=== PATIENT | female | born 1995 | race Caucasian/White ===

== ENCOUNTER 2018-10-01 11:43 | Inpatient (IN) | payer BC ==
[2018-10-01] MEDS ORDERED: Sodium Chloride 0.9% 10 ML Syringe FLUSH PRN (12:09)
[2018-10-01] MEDS ORDERED: Nalbuphine 20 MG/ML 1 ML Syringe IVPUSH PRN (12:09)
[2018-10-01] MEDS ORDERED: Ampicillin 2 GM in Sodium Chloride 0.9% 100 ML IV ONE (12:09)
[2018-10-01] MEDS ORDERED: Ampicillin 2 GM AdvVial IV ONE (12:13)
[2018-10-01] MEDS ORDERED: Sodium Chloride 0.9% 100 ML ONE (12:14)
[2018-10-01] MEDS ORDERED: Lactated Ringers 1,000 ML IV SCH (12:15)
[2018-10-01] MEDS ORDERED: Oxytocin/Lactated Ringers 10 UNIT/1,000 ML BAG IV SCH (12:15)
[2018-10-01] MEDS ORDERED: Lidocaine 1% 50 ML MDV ONE (14:36)
--- NOTE | 2018-10-01 15:01 | PCM.LDHP ---
L&D History of Present Illness - General Date of Service: 10/01/18 Admit Problem/Dx: Patient Status Order with Admit Dx/Problem 10/01/18 12:10 Patient Status [ADT] Routine Admission Diagnosis/Problem Admission Diagnosis/Problem Source of Information: Patient History Limitations: Reports: No Limitations - History of Present Illness Introduction:: Her old 001 JM 10/05/18 at 39 weeks and 3 days estimated gestational age group B strep positive patient presented to labor and delivery with frequent contractions cervix 5-6 cm dilated at 1400 hrs. on Wednesday10/01/18 patient admitted for labor and delivery. Blood type O-positive antibody screen negative on 03/10/18 hemoglobin 13.0/ hematocrit 39.1 platelets 235,000, rubella equivocal serology nonreactive urine culture mixed ihsan hepatitis B surface antigen and HIV negative GC and chlamydia probe negative. On 07/08/18 hemoglobin/hematocrit 12.8/39.2 platelets 198,000, 1 hour OB glucose screen 101 RPR nonreactive. On 02/10/18 hemoglobin/hematocrit 13.6 and 42.1 platelets 270,000. One 09/08/18 group B strep positive. Ultrasound obtained on 03/10/2010 weeks 1 day and cystoscopy with JM of . Heart tones and good activity noted. heart tones possibly 174. On 05/22/18 ultrasound obtained on 05/18/1819 weeks 5 days vaca viable intrauterine 51% growth interval anterior placental location cervix 4.6 cm heart tones 140. Small echogenic focus left ventricle. 06/17/18 ultrasound 24 weeks 3 days vaca viable intrauterine anterior placenta and normal RIGOBERTO and normal anatomy with the exception of echogenic focus left ventricle of the heart. Growth at 57 percentile heart rate 1 44 bpm cervix 3.8 cm. Location, : Reports: Abdomen, Lower back Quality: Reports: Ache, Pressure Severity: Moderate Pain Score: 6 Improves with: Reports: None Worsens with: Reports: None Associated Symptoms: Reports: N - Related Data Allergies/Adverse Reactions: Allergies Allergy/AdvReac Type Severity Reaction Status Date / Time No Known Allergies Allergy Verified 06/23/15 23:45 Home Medications: Home Meds Vit 90/Iron Fum/Folic [ Formula] 1 tab PO DAILY 06/23/15 [ History] Acetaminophen [Tylenol] 650 mg PO Q4H PRN #0 tablet 01/25/16 [Rx] Benzocaine/Menthol [Dermoplast Pain Relief Orestes] 1 spray TOP ASDIRECTED PRN #0 canister 01/25/16 [Rx] Docusate Sodium [Colace] 100 mg PO BID PRN #0 cap 01/25/16 [Rx] Ibuprofen [IJD: Ibuprofen] 200 - 600 mg PO Q6H PRN #0 tablet 01/25/16 [Rx] Bindu Camposel [Tucks] 1 pad TOP ASDIRECTED PRN #0 pad 01/25/16 [Rx] Past Medical History [employer] History: Reports: - Past Surgical History HEENT Surgical History: Reports: Other (See Below) Social & Family History - Family History Family Medical History: Noncontributory - Tobacco Use Smoking Status *Q: Never Smoker Second Hand Smoke Exposure: No - Caffeine Use Caffeine Use: Reports: None - Recreational Drug Use Recreational Drug Use: No H&P Review of Systems - Review of Systems: Review Of Systems: See Below General: Reports: No Symptoms HEENT: Reports: No Symptoms Pulmonary: Reports: No Symptoms Cardiovascular: Reports: No Symptoms Gastrointestinal: Reports: No Symptoms Genitourinary: Reports: No Symptoms Musculoskeletal: Reports: No Symptoms Skin: Reports: No Symptoms Psychiatric: Reports: No Symptoms Neurological: Reports: No Symptoms Hematologic/Lymphatic: Reports: No Symptoms Immunologic: Reports: No Symptoms L&D Exam - Exam Exam: See Below - Vital Signs Vital Signs: Last Vital Signs Temp 98.3 F 10/01/18 12:10 Pulse 76 10/01/18 12:10 Resp 14 10/01/18 12:10 BP 126/72 10/01/18 12:10 Pulse Ox 100 10/01/18 11:59 Weight: 145 lb - OB Specific Fundal Height In cm: 39 Contraction Duration (sec): 60 Contraction Frequency (min): 2-3 Contraction Intensity: Moderate Movement: Active Heart Tones: Present Heart Tones per Min: 140 Heart Rate (FHR) Variability: Moderate (6-25 bmp) Presentation: Vertex - Damian Score Damian Score Cervix Position: Midposition Damian Score Consistency: Soft Damian Score Effacement: 51-70% Damian Score Dilation: > 5 cm Damian Score 's Station: -2 Damian Score Total: 9 - Exam General: Alert, Oriented HEENT: Conjunctiva Clear, Mucosa Moist & [place], PERRLA Neck: Supple, Trachea Midline Lungs: Clear to Auscultation, Normal Respiratory Effort Cardiovascular: Regular Rate, Regular Rhythm GI/Abdominal Exam: Normal Bowel Sounds, Soft, Non-Tender Genitourinary: Normal external exam Extremities: Normal Inspection, Normal Range of Motion, Non-Tender, No Pedal Edema, Normal Capillary Refill Skin: Warm, Dry, Intact Neurological: Reflexes Equal Bilateral Psychiatric: Alert, Normal Affect, Normal Mood - Patient Data Lab Results Last 24 hrs: Laboratory Results - last 24 hr 10/01/18 10/01/18 Range/Units 12:30 12:30 WBC 11.66 H (3.98-10.04) K/mm3 RBC 4.39 (3.98-5.22) M/mm3 Hgb 13.5 (11.2-15.7) gm/L Hct 41.9 (34.1-44.9) % MCV 95.4 H (79.4-94.8) fl MCH 30.8 (25.6-32.2) pg MCHC 32.2 (32.2-35.5) g/dl RDW Std Deviation 47.9 H (36.4-46.3) fL Plt Count 191 (182-369) K/mm3 MPV 10.6 (9.4-12.3) fl Neut % (Auto) 75.5 H (34.0-71.1) % Lymph % (Auto) 14.4 L (19.3-51.7) % [place] % (Auto) 8.5 (4.7-12.5) % Eos % (Auto) 0.3 L (0.7-5.8) Baso % (Auto) 0.2 (0.1-1.2) % Neut # (Auto) 8.80 H (1.56-6.13) K/mm3 Lymph # (Auto) 1.68 (1.18-3.74) K/mm3 [place] # (Auto) 0.99 H (0.24-0.36) K/mm3 Eos # (Auto) 0.04 (0.04-0.36) K/mm3 Baso # (Auto) 0.02 (0.01-0.08) K/mm3 Manual Slide Review Abnormal smear Blood Type O POSITIVE Gel Antibody Screen Negative Result Diagrams: 10/01/18 12:30 - Problem List (1) Carrier or suspected carrier of group B Streptococcus SNOMED Code(s): 163422016 ICD Code: Z22.330 - CARRIER OF GROUP B STREPTOCOCCUS Status: Acute Current Visit: Yes (2) Echogenic focus of heart, , affecting care of mother, antepartum SNOMED Code(s): 201980026, 975516082, 964726688 ICD Code: O35.8XX0 - MATERNAL CARE FOR OTH ABNORMALITY AND DAMAGE, UNSP Status: Acute Current Visit: Yes Qualifiers: Fetus number: single or unspecified fetus Qualified Code(s): O35.8XX0 - Maternal care for other (suspected) abnormality and damage, not applicable or unspecified (3) 39 weeks gestation of SNOMED Code(s): 73510480 ICD Code: Z3A.39 - 39 WEEKS GESTATION OF Status: Acute Current Visit: No Problem List Initiated/Reviewed/Updated: No Orders Last 24hrs: Active Orders 24 hr Category Date Time Status Patient Status [ADT] Routine ADT 10/01/18 12:10 Active Activity as Tolerated [RC] PFP Care 10/01/18 12:10 Active Communication Order [RC] ASDIRECTED Care 10/01/18 12:10 Active Notify Provider [RC] PFP Care 10/01/18 12:10 Active Notify Provider [RC] PRN Care 10/01/18 12:10 Active Peripheral IV Care [RC] . DIRECTED Care 10/01/18 12:10 Active Vital Signs [RC] 03,09,15,21 Care 10/01/18 12:10 Active Regular Diet [DIET] Diet 10/01/18 Lunch Active Ampicillin 1 gm Med 10/01/18 16:00 Active Sodium Chloride 0.9% [Normal Saline] 100 ml IV Q4H Lactated Ringers [Ringers, Lactated] 1,000 ml Med 10/01/18 12:15 Active IV ASDIRECTED Nalbuphine [Nubain] Med 10/01/18 12:09 Active 10 mg IVPUSH Q2H PRN Oxytocin/Lactated Ringers [Pitocin in LR 10 Units/1,000 Med 10/01/18 12:15 Active ML] 10 unit in 1,000 ml IV .CONTINUOUS Sodium Chloride 0.9% [Saline Flush] Med 10/01/18 12:09 Active 10 ml FLUSH ASDIRECTED PRN Electronic Heart Tones Ext w TOCO [WOMSER] Oth 10/01/18 12:10 Ordered Routine Electronic Heart Tones Internal [WOMSER] Per Unit Oth 10/01/18 12:10 Ordered Routine Peripheral IV Insertion Adult [OM.PC] Routine Oth 10/01/18 12:10 Ordered Resuscitation Status Routine Resus Stat 10/01/18 12:09 Ordered Medication Orders Ampicillin Sodium 1 gm/ Sodium (Chloride) 100 mls @ 200 mls/hr IV Q4H NEISHA Lactated Ringer's (Ringers, Lactated) 1,000 mls @ 100 mls/hr IV ASDIRECTED NEISHA Last Admin: 10/01/18 12:18 Dose: 100 mls/hr Oxytocin/Lactated Ringer's (Pitocin In Lr 10 Units/1,000 Ml) 10 unit in 1,000 mls @ 500 mls/hr IV .CONTINUOUS NEISHA Nalbuphine HCl (Nubain) 10 mg IVPUSH Q2H PRN PRN Reason: pain Sodium Chloride (Saline Flush) 10 ml FLUSH ASDIRECTED PRN PRN Reason: Keep Vein Open Assessment/Plan Comment:: Plan labor and delivery.
[2018-10-01] MEDS ORDERED: Ampicillin 1 GM in Sodium Chloride 0.9% 100 ML IV SCH (16:00)
[2018-10-01] MEDS ORDERED: Misoprostol 200 MCG Tab ONE (17:42)
--- NOTE | 2018-10-01 17:48 | PCM.DEL ---
L & D Note - General Info Date of Service: 10/01/18 Mother's Due Date: 10/05/18 - Delivery Note Labor: Spontaneous Delivery Outcome: Livebirth (male GERTRUDIS Wednesday10/01/18 APGARs 8/9) Infant Delivery Method: Spontaneous Vaginal Delivery-Single Delivery Mode: Spontaneous Presentation: Left Occiput Anterior (GERTRUDIS) Nuchal Cord: None Prep: Povidone-Iodine (Betadine Anesthesia Type: None Episiotomy Type: None Laceration: None Placenta: Intact, Spontaneous (173110/01/18 velamentous insertion of cord) Cord: 3 Vessels Estimated Blood Loss: 250 (Cytotec 200 mcg x2 buccal) Resuscitation Needed: No [place]: Suctioned, Bulb Syringe, Stimulated, Warmed, [place] Used, Warmer Used Provider: Tomy Arnold Score 1 min: 8 Score 5 min: 9 - General Info Date of Service: 10/01/18 Functional Status: Reports: Pain Controlled - Review of Systems General: Reports: No Symptoms HEENT: Reports: No Symptoms Pulmonary: Reports: No Symptoms Cardiovascular: Reports: No Symptoms Gastrointestinal: Reports: No Symptoms Genitourinary: Reports: No Symptoms Musculoskeletal: Reports: No Symptoms Skin: Reports: No Symptoms Neurological: Reports: No Symptoms Psychiatric: Reports: No Symptoms - Patient Data Vitals - Most Recent: Last Vital Signs Temp 98.3 F 10/01/18 12:10 Pulse 76 10/01/18 12:10 Resp 14 10/01/18 12:10 BP 126/72 10/01/18 12:10 Pulse Ox 100 10/01/18 11:59 Weight - Most Recent: 145 lb Lab Results Last 24 Hours: Laboratory Results - last 24 hr 10/01/18 10/01/18 Range/Units 12:30 12:30 WBC 11.66 H (3.98-10.04) K/mm3 RBC 4.39 (3.98-5.22) M/mm3 Hgb 13.5 (11.2-15.7) gm/L Hct 41.9 (34.1-44.9) % MCV 95.4 H (79.4-94.8) fl MCH 30.8 (25.6-32.2) pg MCHC 32.2 (32.2-35.5) g/dl RDW Std Deviation 47.9 H (36.4-46.3) fL Plt Count 191 (182-369) K/mm3 MPV 10.6 (9.4-12.3) fl Neut % (Auto) 75.5 H (34.0-71.1) % Lymph % (Auto) 14.4 L (19.3-51.7) % [place] % (Auto) 8.5 (4.7-12.5) % Eos % (Auto) 0.3 L (0.7-5.8) Baso % (Auto) 0.2 (0.1-1.2) % Neut # (Auto) 8.80 H (1.56-6.13) K/mm3 Lymph # (Auto) 1.68 (1.18-3.74) K/mm3 [place] # (Auto) 0.99 H (0.24-0.36) K/mm3 Eos # (Auto) 0.04 (0.04-0.36) K/mm3 Baso # (Auto) 0.02 (0.01-0.08) K/mm3 Manual Slide Review Abnormal smear Blood Type O POSITIVE Gel Antibody Screen Negative Med Orders - Current: Current Medications Ampicillin Sodium 1 gm/ Sodium (Chloride) 100 mls @ 200 mls/hr IV Q4H NEISHA Last Admin: 10/01/18 15:37 Dose: 200 mls/hr Lactated Ringer's (Ringers, Lactated) 1,000 mls @ 100 mls/hr IV ASDIRECTED NEISHA Last Admin: 10/01/18 12:18 Dose: 100 mls/hr Oxytocin/Lactated Ringer's (Pitocin In Lr 10 Units/1,000 Ml) 10 unit in 1,000 mls @ 500 mls/hr IV .CONTINUOUS NEISHA Nalbuphine HCl (Nubain) 10 mg IVPUSH Q2H PRN PRN Reason: pain Sodium Chloride (Saline Flush) 10 ml FLUSH ASDIRECTED PRN PRN Reason: Keep Vein Open Discontinued Medications Ampicillin Sodium (Ampicillin) Confirm Administered Dose 2 gm IV .STK-MED ONE Stop: 10/01/18 12:14 Last Admin: 10/01/18 14:17 Dose: Not Given Ampicillin Sodium 2 gm/ Sodium (Chloride) 100 mls @ 200 mls/hr IV ONETIME ONE Stop: 10/01/18 12:38 Last Admin: 10/01/18 12:18 Dose: 200 mls/hr Sodium Chloride (Normal Saline) Confirm Administered Dose 100 mls @ as directed .ROUTE .[employer] ONE Stop: 10/01/18 12:15 Last Admin: 10/01/18 14:17 Dose: Not Given Lidocaine HCl (Xylocaine 1%) Confirm Administered Dose 50 ml .ROUTE .[employer] ONE Stop: 10/01/18 14:37 - Exam General: Alert, Oriented HEENT: Pupils Equal, Mucous Membr. Moist/[place] Neck: Supple (Female) Exam: Normal External Exam Extremities: Normal Inspection, Normal Range of Motion, Non-Tender, No Pedal Edema, Normal Capillary Refill - Problem List & Annotations (1) Carrier or suspected carrier of group B Streptococcus SNOMED Code(s): 690495116 Code(s): Z22.330 - CARRIER OF GROUP B STREPTOCOCCUS Status: Acute Current Visit: Yes (2) Echogenic focus of heart, , affecting care of mother, antepartum SNOMED Code(s): 930844533, 285881710, 441146833 Code(s): O35.8XX0 - MATERNAL CARE FOR OTH ABNORMALITY AND DAMAGE, UNSP Status: Acute Current Visit: Yes Qualifiers: Fetus number: single or unspecified fetus Qualified Code(s): O35.8XX0 - Maternal care for other (suspected) abnormality and damage, not applicable or unspecified (3) 39 weeks gestation of SNOMED Code(s): 32240520 Code(s): Z3A.39 - 39 WEEKS GESTATION OF Status: Acute Current Visit: No (4) Velamentous insertion of umbilical cord SNOMED Code(s): 05992073 Code(s): O43.129 - VELAMENTOUS INSERTION OF UMBILICAL CORD, UNSP TRIMESTER Status: Acute Current Visit: Yes - Problem List Review Problem List Initiated/Reviewed/Updated: No - My Orders Last 24 Hours: My Active Orders 10/01/18 12:09 Nalbuphine [Nubain] 10 mg IVPUSH Q2H PRN Sodium Chloride 0.9% [Saline Flush] 10 ml FLUSH ASDIRECTED PRN Resuscitation Status Routine 10/01/18 12:10 Patient Status [ADT] Routine Activity as Tolerated [RC] PFP Communication Order [RC] ASDIRECTED Notify Provider [RC] PFP Notify Provider [RC] PRN Peripheral IV Care [RC] . DIRECTED Vital Signs [RC] 03,09,15,21 Electronic Heart Tones Ext w TOCO [WOMSER] Routine Electronic Heart Tones Internal [WOMSER] Per Unit Routine Peripheral IV Insertion Adult [OM.PC] Routine 10/01/18 12:15 Lactated Ringers [Ringers, Lactated] 1,000 ml IV ASDIRECTED Oxytocin/Lactated Ringers [Pitocin in LR 10 Units/1,000 ML] 10 unit in 1,000 ml IV .CONTINUOUS 10/01/18 16:00 Ampicillin 1 gm Sodium Chloride 0.9% [Normal Saline] 100 ml IV Q4H 10/01/18 Lunch Regular Diet [DIET] - Plan Plan:: Plan labor and delivery.
[2018-10-01] MEDS ORDERED: Ibuprofen 600 MG Tab PO PRN (18:21)
[2018-10-01] MEDS ORDERED: Docusate Sodium 100 MG Cap PO PRN (18:21)
[2018-10-01] MEDS ORDERED: Simethicone 80 MG Tab.Chew PO PRN (18:21)
[2018-10-01] MEDS ORDERED: Lanolin 100% Cream 7 GM Tube TOP PRN (18:21)
[2018-10-01] MEDS ORDERED: Witch Hazel Medicated Pads 100/Jar TOP PRN (18:21)
[2018-10-01] MEDS ORDERED: Acetaminophen 325 MG Tab PO PRN (18:21)
[2018-10-01] MEDS ORDERED: Misoprostol 200 MCG Tab PO ONE (18:30)
--- NOTE | 2018-10-02 10:15 | PCM.DCSUM1 ---
Discharge Summary - Hospital Course Free Text/Narrative:: [facility] LIVE L/D Delivery Note Patient Name: ABRAHAN CHAMBERS Date of : 89 Patient Status: Inpatient Attending Provider: Tomy Arnold Date: 10/01/18 17:44 Initialization Date: 10/01/18 17:44 L & D Note - General Info Date of Service: 10/01/18 Mother's Due Date: 10/05/18 - Delivery Note Labor: Spontaneous Delivery Outcome: Livebirth (male GERTRUDIS Wednesday10/01/18 APGARs 8/9) Delivery Method: Spontaneous Vaginal Delivery-Single Infant Delivery Mode: Spontaneous Presentation: Left Occiput Anterior (GERTRUDIS) Nuchal Cord: None Prep: Povidone-Iodine (Betadine Anesthesia Type: None Episiotomy Type: None Laceration: None Placenta: Intact, Spontaneous (173110/01/18 velamentous insertion of cord) Cord: 3 Vessels Estimated Blood Loss: 250 (Cytotec 200 mcg x2 buccal) Resuscitation Needed: No : Suctioned, Bulb Syringe, Stimulated, Warmed, [place] Used, Warmer Used Provider: Tomy Arnold Score 1 min: 8 Score 5 min: 9 - General Info Date of Service: 10/01/18 Functional Status: Reports: Pain Controlled - Review of Systems General: Reports: No Symptoms HEENT: Reports: No Symptoms Pulmonary: Reports: No Symptoms Cardiovascular: Reports: No Symptoms Gastrointestinal: Reports: No Symptoms Genitourinary: Reports: No Symptoms Musculoskeletal: Reports: No Symptoms Skin: Reports: No Symptoms Neurological: Reports: No Symptoms Psychiatric: Reports: No Symptoms - Patient Data Vitals - Most Recent: Last Vital Signs Temp 98.3 F 10/01/18 12:10 Pulse 76 10/01/18 12:10 Resp 14 10/01/18 12:10 BP 126/72 10/01/18 12:10 Pulse Ox 100 10/01/18 11:59 Weight - Most Recent: 145 lb Lab Results Last 24 Hours: Laboratory Results - last 24 hr 10/01/18 10/01/18 Range/Units 12:30 12:30 WBC 11.66 H (3.98-10.04) K/mm3 RBC 4.39 (3.98-5.22) M/mm3 Hgb 13.5 (11.2-15.7) gm/L Hct 41.9 (34.1-44.9) % MCV 95.4 H (79.4-94.8) fl MCH 30.8 (25.6-32.2) pg MCHC 32.2 (32.2-35.5) g/dl RDW Std Deviation 47.9 H (36.4-46.3) fL Plt Count 191 (182-369) K/mm3 MPV 10.6 (9.4-12.3) fl Neut % (Auto) 75.5 H (34.0-71.1) % Lymph % (Auto) 14.4 L (19.3-51.7) % [place] % (Auto) 8.5 (4.7-12.5) % Eos % (Auto) 0.3 L (0.7-5.8) Baso % (Auto) 0.2 (0.1-1.2) % Neut # (Auto) 8.80 H (1.56-6.13) K/mm3 Lymph # (Auto) 1.68 (1.18-3.74) K/mm3 [place] # (Auto) 0.99 H (0.24-0.36) K/mm3 Eos # (Auto) 0.04 (0.04-0.36) K/mm3 Baso # (Auto) 0.02 (0.01-0.08) K/mm3 Manual Slide Review Abnormal smear Blood Type O POSITIVE Gel Antibody Screen Negative Med Orders - Current: Current Medications Ampicillin Sodium 1 gm/ Sodium (Chloride) 100 mls @ 200 mls/hr IV Q4H [facility] Last Admin: 10/01/18 15:37 Dose: 200 mls/hr Lactated Ringer's (Ringers, Lactated) 1,000 mls @ 100 mls/hr IV ASDIRECTED [facility] Last Admin: 10/01/18 12:18 Dose: 100 mls/hr Oxytocin/Lactated Ringer's (Pitocin In Lr 10 Units/1,000 Ml) 10 unit in 1,000 mls @ 500 mls/hr IV .CONTINUOUS NEISHA Nalbuphine HCl (Nubain) 10 mg IVPUSH Q2H PRN PRN Reason: pain Sodium Chloride (Saline Flush) 10 ml FLUSH ASDIRECTED PRN PRN Reason: Keep Vein Open Discontinued Medications Ampicillin Sodium (Ampicillin) Confirm Administered Dose 2 gm IV .STK-MED ONE Stop: 10/01/18 12:14 Last Admin: 10/01/18 14:17 Dose: Not Given Ampicillin Sodium 2 gm/ Sodium (Chloride) 100 mls @ 200 mls/hr IV ONETIME ONE Stop: 10/01/18 12:38 Last Admin: 10/01/18 12:18 Dose: 200 mls/hr Sodium Chloride (Normal Saline) Confirm Administered Dose 100 mls @ as directed .ROUTE .STK-MED ONE Stop: 10/01/18 12:15 Last Admin: 10/01/18 14:17 Dose: Not Given Lidocaine HCl (Xylocaine 1%) Confirm Administered Dose 50 ml .ROUTE .STK-MED ONE Stop: 10/01/18 14:37 - Exam General: Alert, Oriented HEENT: Pupils Equal, Mucous Membr. Moist/[place] Neck: Supple (Female) Exam: Normal External Exam Extremities: Normal Inspection, Normal Range of Motion, Non-Tender, No Pedal Edema, Normal Capillary Refill - Problem List & Annotations (1) Carrier or suspected carrier of group B Streptococcus SNOMED Code(s): 328093916 Code(s): Z22.330 - CARRIER OF GROUP B STREPTOCOCCUS Status: Acute Current Visit: Yes (2) Echogenic focus of heart, , affecting care of mother, antepartum SNOMED Code(s): 604278284, 386006139, 992452727 Code(s): O35.8XX0 - MATERNAL CARE FOR OTH ABNORMALITY AND DAMAGE, UNSP Status: Acute Current Visit: Yes Qualifiers: Fetus number: single or unspecified fetus Qualified Code(s): O35.8XX0 - Maternal care for other (suspected) abnormality and damage, not applicable or unspecified (3) 39 weeks gestation of SNOMED Code(s): 32020811 Code(s): Z3A.39 - 39 WEEKS GESTATION OF Status: Acute Current Visit: No (4) Velamentous insertion of umbilical cord SNOMED Code(s): 91787733 Code(s): O43.129 - VELAMENTOUS INSERTION OF UMBILICAL CORD, UNSP TRIMESTER Status: Acute Current Visit: Yes - Problem List Review Problem List Initiated/Reviewed/Updated: No - My Orders Last 24 Hours: My Active Orders 10/01/18 12:09 Nalbuphine [Nubain] 10 mg IVPUSH Q2H PRN Sodium Chloride 0.9% [Saline Flush] 10 ml FLUSH ASDIRECTED PRN Resuscitation Status Routine 10/01/18 12:10 Patient Status [ADT] Routine Activity as Tolerated [RC] PFP Communication Order [RC] ASDIRECTED Notify Provider [RC] PFP Notify Provider [RC] PRN Peripheral IV Care [RC] . DIRECTED Vital Signs [RC] 03,09,15,21 Electronic Heart Tones Ext w TOCO [WOMSER] Routine Electronic Heart Tones Internal [WOMSER] Per Unit Routine Peripheral IV Insertion Adult [OM.PC] Routine 10/01/18 12:15 Lactated Ringers [Ringers, Lactated] 1,000 ml IV ASDIRECTED Oxytocin/Lactated Ringers [Pitocin in LR 10 Units/1,000 ML] 10 unit in 1,000 ml IV .CONTINUOUS 10/01/18 16:00 Ampicillin 1 gm Sodium Chloride 0.9% [Normal Saline] 100 ml IV Q4H 10/01/18 Lunch Regular Diet [DIET] - Plan Plan:: Plan labor and delivery. HPI Initial Comments: [facility] LIVE L/D Delivery Note Patient Name: ABRAHAN CHAMBERS Date of : 89 Patient Status: Inpatient Attending Provider: Tomy Arnold Date: 10/01/18 17:44 Initialization Date: 10/01/18 17:44 L & D Note - General Info Date of Service: 10/01/18 Mother's Due Date: 10/05/18 - Delivery Note Labor: Spontaneous Delivery Outcome: Livebirth (male GERTRUDIS Wednesday10/01/18 APGARs 8/9) Delivery Method: Spontaneous Vaginal Delivery-Single Infant Delivery Mode: Spontaneous Presentation: Left Occiput Anterior (GERTRUDIS) Nuchal Cord: None Prep: Povidone-Iodine (Betadine Anesthesia Type: None Episiotomy Type: None Laceration: None Placenta: Intact, Spontaneous (173110/01/18 velamentous insertion of cord) Cord: 3 Vessels Estimated Blood Loss: 250 (Cytotec 200 mcg x2 buccal) Resuscitation Needed: No [place]: Suctioned, Bulb Syringe, Stimulated, Warmed, [place] Used, Warmer Used Provider: Tomy Arnold Score 1 min: 8 Score 5 min: 9 - General Info Date of Service: 10/01/18 Functional Status: Reports: Pain Controlled - Review of Systems General: Reports: No Symptoms HEENT: Reports: No Symptoms Pulmonary: Reports: No Symptoms Cardiovascular: Reports: No Symptoms Gastrointestinal: Reports: No Symptoms Genitourinary: Reports: No Symptoms Musculoskeletal: Reports: No Symptoms Skin: Reports: No Symptoms Neurological: Reports: No Symptoms Psychiatric: Reports: No Symptoms - Patient Data Vitals - Most Recent: Last Vital Signs Temp 98.3 F 10/01/18 12:10 Pulse 76 10/01/18 12:10 Resp 14 10/01/18 12:10 BP 126/72 10/01/18 12:10 Pulse Ox 100 10/01/18 11:59 Weight - Most Recent: 145 lb Lab Results Last 24 Hours: Laboratory Results - last 24 hr 10/01/18 10/01/18 Range/Units 12:30 12:30 WBC 11.66 H (3.98-10.04) K/mm3 RBC 4.39 (3.98-5.22) M/mm3 Hgb 13.5 (11.2-15.7) gm/L Hct 41.9 (34.1-44.9) % MCV 95.4 H (79.4-94.8) fl MCH 30.8 (25.6-32.2) pg MCHC 32.2 (32.2-35.5) g/dl RDW Std Deviation 47.9 H (36.4-46.3) fL Plt Count 191 (182-369) K/mm3 MPV 10.6 (9.4-12.3) fl Neut % (Auto) 75.5 H (34.0-71.1) % Lymph % (Auto) 14.4 L (19.3-51.7) % [place] % (Auto) 8.5 (4.7-12.5) % Eos % (Auto) 0.3 L (0.7-5.8) Baso % (Auto) 0.2 (0.1-1.2) % Neut # (Auto) 8.80 H (1.56-6.13) K/mm3 Lymph # (Auto) 1.68 (1.18-3.74) K/mm3 [place] # (Auto) 0.99 H (0.24-0.36) K/mm3 Eos # (Auto) 0.04 (0.04-0.36) K/mm3 Baso # (Auto) 0.02 (0.01-0.08) K/mm3 Manual Slide Review Abnormal smear Blood Type O POSITIVE Gel Antibody Screen Negative Med Orders - Current: Current Medications Ampicillin Sodium 1 gm/ Sodium (Chloride) 100 mls @ 200 mls/hr IV Q4H [facility] Last Admin: 10/01/18 15:37 Dose: 200 mls/hr Lactated Ringer's (Ringers, Lactated) 1,000 mls @ 100 mls/hr IV ASDIRECTED [facility] Last Admin: 10/01/18 12:18 Dose: 100 mls/hr Oxytocin/Lactated Ringer's (Pitocin In Lr 10 Units/1,000 Ml) 10 unit in 1,000 mls @ 500 mls/hr IV .CONTINUOUS NEISHA Nalbuphine HCl (Nubain) 10 mg IVPUSH Q2H PRN PRN Reason: pain Sodium Chloride (Saline Flush) 10 ml FLUSH ASDIRECTED PRN PRN Reason: Keep Vein Open Discontinued Medications Ampicillin Sodium (Ampicillin) Confirm Administered Dose 2 gm IV .STK-MED ONE Stop: 10/01/18 12:14 Last Admin: 10/01/18 14:17 Dose: Not Given Ampicillin Sodium 2 gm/ Sodium (Chloride) 100 mls @ 200 mls/hr IV ONETIME ONE Stop: 10/01/18 12:38 Last Admin: 10/01/18 12:18 Dose: 200 mls/hr Sodium Chloride (Normal Saline) Confirm Administered Dose 100 mls @ as directed .ROUTE .STK-MED ONE Stop: 10/01/18 12:15 Last Admin: 10/01/18 14:17 Dose: Not Given Lidocaine HCl (Xylocaine 1%) Confirm Administered Dose 50 ml .ROUTE .STK-MED ONE Stop: 10/01/18 14:37 - Exam General: Alert, Oriented HEENT: Pupils Equal, Mucous Membr. Moist/[place] Neck: Supple (Female) Exam: Normal External Exam Extremities: Normal Inspection, Normal Range of Motion, Non-Tender, No Pedal Edema, Normal Capillary Refill - Problem List & Annotations (1) Carrier or suspected carrier of group B Streptococcus SNOMED Code(s): 092687945 Code(s): Z22.330 - CARRIER OF GROUP B STREPTOCOCCUS Status: Acute Current Visit: Yes (2) Echogenic focus of heart, , affecting care of mother, antepartum SNOMED Code(s): 613268120, 987964248, 596558393 Code(s): O35.8XX0 - MATERNAL CARE FOR OTH ABNORMALITY AND DAMAGE, UNSP Status: Acute Current Visit: Yes Qualifiers: Fetus number: single or unspecified fetus Qualified Code(s): O35.8XX0 - Maternal care for other (suspected) abnormality and damage, not applicable or unspecified (3) 39 weeks gestation of SNOMED Code(s): 09027083 Code(s): Z3A.39 - 39 WEEKS GESTATION OF Status: Acute Current Visit: No (4) Velamentous insertion of umbilical cord SNOMED Code(s): 03702436 Code(s): O43.129 - VELAMENTOUS INSERTION OF UMBILICAL CORD, UNSP TRIMESTER Status: Acute Current Visit: Yes - Problem List Review Problem List Initiated/Reviewed/Updated: No - My Orders Last 24 Hours: My Active Orders 10/01/18 12:09 Nalbuphine [Nubain] 10 mg IVPUSH Q2H PRN Sodium Chloride 0.9% [Saline Flush] 10 ml FLUSH ASDIRECTED PRN Resuscitation Status Routine 10/01/18 12:10 Patient Status [ADT] Routine Activity as Tolerated [RC] PFP Communication Order [RC] ASDIRECTED Notify Provider [RC] PFP Notify Provider [RC] PRN Peripheral IV Care [RC] . DIRECTED Vital Signs [RC] 03,09,15,21 Electronic Heart Tones Ext w TOCO [WOMSER] Routine Electronic Heart Tones Internal [WOMSER] Per Unit Routine Peripheral IV Insertion Adult [OM.PC] Routine 10/01/18 12:15 Lactated Ringers [Ringers, Lactated] 1,000 ml IV ASDIRECTED Oxytocin/Lactated Ringers [Pitocin in LR 10 Units/1,000 ML] 10 unit in 1,000 ml IV .CONTINUOUS 10/01/18 16:00 Ampicillin 1 gm Sodium Chloride 0.9% [Normal Saline] 100 ml IV Q4H 10/01/18 Lunch Regular Diet [DIET] - Plan Plan:: Plan labor and delivery. Brief History: [facility] LIVE . L/D Delivery Note. Patient Name: ABRAHAN CHAMBERSical Record Number: [id number]. Date of : [birth year]Patient Status: Inpatient. Attending Provider: Tomy Arnoldorly Number: [id number]. Date: 10/01/18 17:44Initialization Date: 10/01/18 17:44. L & D Note. - General Info. Date of Service: 10/01/18. Mother's Due Date: 10/05/18. - Delivery Note. Labor: Spontaneous. Delivery Outcome: Livebirth ( male GERTRUDIS Wednesday 17310/01/18 APGARs 8/9). Infant Delivery Method: Spontaneous Vaginal Delivery-Single. Infant Delivery Mode: Spontaneous. Presentation : Left Occiput Anterior (GERTRUDIS). Nuchal Cord: None. Prep: Povidone-Iodine ( Betadine. Anesthesia Type: None. Episiotomy Type: None. Laceration: None. Placenta: Intact, Spontaneous (173110/01/18 velamentous insertion of cord). Cord : 3 Vessels. Estimated Blood Loss: 250 (Cytotec 200 mcg x2 buccal). Resuscitation Needed: No. [place]: Suctioned, Bulb Syringe, Stimulated, Warmed , [place] Used, Warmer Used. Provider: Tomy Arnold. Score 1 min: 8. Score 5 min: 9. - General Info. Date of Service: . Functional Status: Reports: Pain Controlled. - Review of Systems. General : Reports: No Symptoms. HEENT: Reports: No Symptoms. Pulmonary: Reports: No Symptoms. Cardiovascular: Reports: No Symptoms. Gastrointestinal: Reports: No Symptoms. Genitourinary: Reports: No Symptoms. Musculoskeletal: Reports: No Symptoms. Skin: Reports: No Symptoms. Neurological: Reports: No Symptoms. Psychiatric: Reports: No Symptoms. - Patient Data. Vitals - Most Recent: Last Vital Signs. Temp 98.3 F 10/01/18 12:10. Pulse 76 10/01/18 12:10. Resp 14 10/01/18 12:10. BP 126/72 10/01/18 12:10. Pulse Ox 100 10/01/18 11: 59. Weight - Most Recent: 145 lb. Lab Results Last 24 Hours: Laboratory Results - last 24 hr. 10/01/1901/09/19Range/Units. 12:3012:30. WBC 11.66 H ( 3.98-10.04) K/mm3. RBC 4.39 (3.98-5.22) M/mm3. Hgb 13.5 (11.2-15.7) gm/L. Hct 41.9 (34.1-44.9) %. MCV 95.4 H (79.4-94.8) fl. MCH 30.8 (25.6-32.2) pg. MCHC 32.2 (32.2-35.5) g/dl. RDW Std Deviation 47.9 H (36.4-46.3) fL. Plt Count 191 (182-369) K/mm3. MPV 10.6 (9.4-12.3) fl. Neut % (Auto) 75.5 H (34.0-71.1) %. Lymph % (Auto) 14.4 L (19.3-51.7) %. [place] % (Auto) 8.5 (4.7- 12.5) %. Eos % (Auto) 0.3 L (0.7-5.8). Baso % (Auto) 0.2 (0.1-1.2) %. Neut # (Auto) 8.80 H (1.56-6.13) K/mm3. Lymph # (Auto) 1.68 (1.18-3.74) K/mm3. [place] # (Auto) 0.99 H (0.24-0.36) K/mm3. Eos # (Auto) 0.04 (0.04-0.36) K/mm3. Baso # (Auto) 0.02 (0.01-0.08) K/mm3. Manual Slide Review Abnormal smear. Blood Type O POSITIVE. Gel Antibody Screen Negative. Med Orders - Current: Current Medications. Ampicillin Sodium 1 gm/ Sodium (Chloride) 100 mls @ 200 mls/hr IV Q4H [facility]. Last Admin: 10/01/18 15:37 Dose: 200 mls/hr. Lactated Ringer's (Ringers, Lactated) 1,000 mls @ 100 mls/hr IV ASDIRECTED [facility]. Last Admin: 10/01/18 12:18 Dose: 100 mls/hr. Oxytocin/Lactated Ringer's (Pitocin In Lr 10 Units/1,000 Ml) 10 unit in 1,000 mls @ 500 mls/hr IV .CONTINUOUS NEISHA. Nalbuphine HCl (Nubain) 10 mg IVPUSH Q2H PRN. PRN Reason: pain. Sodium Chloride (Saline Flush) 10 ml FLUSH ASDIRECTED PRN. PRN Reason: Keep Vein Open. Discontinued Medications. Ampicillin Sodium (Ampicillin) Confirm Administered Dose 2 gm IV .STK-MED ONE. Stop: 10/01/18 12:14. Last Admin: 05/11 14:17 Dose: Not Given. Ampicillin Sodium 2 gm/ Sodium (Chloride) 100 mls @ 200 mls/hr IV ONETIME ONE. Stop: 10/01/18 12:38. Last Admin: 10/01/18 12 :18 Dose: 200 mls/hr. Sodium Chloride (Normal Saline) Confirm Administered Dose 100 mls @ as directed .ROUTE .STK-MED ONE. Stop: 10/01/18 12:15. Last Admin: 10/01/18 14:17 Dose: Not Given. Lidocaine HCl (Xylocaine 1%) Confirm Administered Dose 50 ml .ROUTE .STK-MED ONE. Stop: 10/01/18 14:37. - Exam. General: Alert, Oriented. HEENT: Pupils Equal, Mucous Membr. Moist/[place]. Neck : Supple. (Female) Exam: Normal External Exam. Extremities: Normal Inspection, Normal Range of Motion, Non-Tender, No Pedal Edema, Normal Capillary Refill. - Problem List & Annotations. (1) Carrier or suspected carrier of group B Streptococcus. SNOMED Code(s): 375344308. Code(s): Z22.330 - CARRIER OF GROUP B STREPTOCOCCUS Status: Acute Current Visit: Yes. (2) Echogenic focus of heart, , affecting care of mother, antepartum. SNOMED Code(s): 447599605, 531328930, 963920813. Code(s): O35.8XX0 - MATERNAL CARE FOR OTH ABNORMALITY AND DAMAGE, UNSP Status: Acute Current Visit: Yes. Qualifiers: Fetus number: single or unspecified fetus Qualified Code(s) : O35.8XX0 - Maternal care for other (suspected) abnormality and damage, not applicable or unspecified. (3) 39 weeks gestation of . SNOMED Code(s): 57587212. Code(s): Z3A.39 - 39 WEEKS GESTATION OF Status: Acute Current Visit: No. (4) Velamentous insertion of umbilical cord. SNOMED Code(s): 31861456. Code(s): O43.129 - VELAMENTOUS INSERTION OF UMBILICAL CORD, UNSP TRIMESTER Status: Acute Current Visit: Yes. - Problem List Review. Problem List Initiated/Reviewed/Updated: No. - My Orders. Last 24 Hours: My Active Orders. 10/01/18 12:09. Nalbuphine [Nubain] 10 mg IVPUSH Q2H PRN. Sodium Chloride 0.9% [Saline Flush] 10 ml FLUSH ASDIRECTED PRN. Resuscitation Status Routine. 10/01/18 12:10. Patient Status [ADT] Routine. Activity as Tolerated [RC] PFP. Communication Order [RC] ASDIRECTED. Notify Provider [RC] PFP. Notify Provider [RC] PRN. Peripheral IV Care [RC] . DIRECTED. Vital Signs [RC] 03,09,15,21. Electronic Heart Tones Ext w TOCO [WOMSER] Routine. Electronic Heart Tones Internal [WOMSER] Per Unit Routine. Peripheral IV Insertion Adult [OM.PC] Routine. 10/01/18 12:15. Lactated Ringers [Ringers, Lactated] 1,000 ml IV ASDIRECTED. Oxytocin/Lactated Ringers [Pitocin in LR 10 Units/1,000 ML] 10 unit in 1,000 ml IV .CONTINUOUS. 10/01/18 16:00. Ampicillin 1 gm Sodium Chloride 0.9% [Normal Saline] 100 ml IV Q4H. 10/01/18 Lunch. Regular Diet [DIET]. - Plan. Plan:: Plan labor and delivery. Diagnosis: Stroke: No - Discharge Data Discharge Date: 10/02/18 Discharge Disposition: Home, Self-Care 01 Condition: Good - Discharge Diagnosis/Problem(s) (1) Carrier or suspected carrier of group B Streptococcus SNOMED Code(s): 316428643 ICD Code: Z22.330 - CARRIER OF GROUP B STREPTOCOCCUS Status: Acute Current Visit: Yes (2) Echogenic focus of heart, , affecting care of mother, antepartum SNOMED Code(s): 326712582, 630145155, 869806659 ICD Code: O35.8XX0 - MATERNAL CARE FOR OTH ABNORMALITY AND DAMAGE, UNSP Status: Acute Current Visit: Yes Qualifiers: Fetus number: single or unspecified fetus Qualified Code(s): O35.8XX0 - Maternal care for other (suspected) abnormality and damage, not applicable or unspecified (3) 39 weeks gestation of SNOMED Code(s): 80541811 ICD Code: Z3A.39 - 39 WEEKS GESTATION OF Status: Acute Current Visit: No (4) Velamentous insertion of umbilical cord SNOMED Code(s): 33332923 ICD Code: O43.129 - VELAMENTOUS INSERTION OF UMBILICAL CORD, UNSP TRIMESTER Status: Acute Current Visit: Yes Qualifiers: Trimester: third trimester Qualified Code(s): O43.123 - Velamentous insertion of umbilical cord, third trimester - Patient Summary/Data Complications: none Consults: none Hospital Course: uneventful - Patient Instructions Diet: Usual Diet as Tolerated Driving: Do Not Drive (x48 hrs) Showering/Bathing: May Shower, No Tub Bathing/Swimming (x6 weeks) Notify Provider of: Fever, Increased Pain, Swelling and Redness, Drainage, Nausea and/or Vomiting - Discharge Plan *PRESCRIPTION DRUG MONITORING PROGRAM REVIEWED*: Not Applicable *COPY OF PRESCRIPTION DRUG MONITORING REPORT IN PATIENT PENNY: Not Applicable Prescriptions/Med Rec: Ibuprofen 600 mg PO Q6H #50 tablet Home Medications: Home Meds Vit 90/Iron Fum/Folic [ Formula] 1 tab PO DAILY 06/23/15 [ History] Acetaminophen [Tylenol] 650 mg PO Q4H PRN #0 tablet 01/25/16 [Rx] Benzocaine/Menthol [Dermoplast Pain Relief [place]] 1 spray TOP ASDIRECTED PRN #0 canister 01/25/16 [Rx] Docusate Sodium [Colace] 100 mg PO BID PRN #0 cap 01/25/16 [Rx] Ibuprofen [IJD: Ibuprofen] 200 - 600 mg PO Q6H PRN #0 tablet 01/25/16 [Rx] Witch Crissy [Tucks] 1 pad TOP ASDIRECTED PRN #0 pad 01/25/16 [Rx] Acetaminophen [Tylenol] 650 mg PO Q6H PRN tablet 10/02/18 [Rx] Docusate Sodium [Colace] 100 mg PO BID PRN cap 10/02/18 [Rx] Ibuprofen 600 mg PO Q6H #50 tablet 10/02/18 [Rx] Lanolin [Lansinoh HPA] 1 applic TOP ASDIRECTED PRN tube 10/02/18 [Rx] Simethicone 80 mg PO Q4H PRN tab.chew 10/02/18 [Rx] Witch Crissy [Tucks] 1 pad TOP ASDIRECTED PRN pad 10/02/18 [Rx] Referrals: Wing Zamora MD [Primary Care Provider] - (2 weeks) - Discharge Summary/Plan Comment DC Time >30 min.: No - Patient Data Vitals - Most Recent: Last Vital Signs Temp 98.8 F 10/02/18 08:40 Pulse 94 10/02/18 08:40 Resp 16 10/02/18 08:40 BP 103/62 10/02/18 08:40 Pulse Ox 96 10/02/18 08:40 Weight - Most Recent: 145 lb Lab Results - Last 24 hrs: Laboratory Results - last 24 hr 10/01/18 10/01/18 10/02/18 Range/Units 12:30 12:30 05:55 WBC 11.66 H 17.57 H (3.98-10.04) K/mm3 RBC 4.39 3.44 L (3.98-5.22) M/mm3 Hgb 13.5 10.6 L (11.2-15.7) gm/L Hct 41.9 32.7 L (34.1-44.9) % MCV 95.4 H 95.1 H (79.4-94.8) fl MCH 30.8 30.8 (25.6-32.2) pg MCHC 32.2 32.4 (32.2-35.5) g/dl RDW Std Deviation 47.9 H 46.0 (36.4-46.3) fL Plt Count 191 190 (182-369) K/mm3 MPV 10.6 11.0 (9.4-12.3) fl Neut % (Auto) 75.5 H 73.5 H (34.0-71.1) % Lymph % (Auto) 14.4 L 16.6 L (19.3-51.7) % [place] % (Auto) 8.5 9.0 (4.7-12.5) % Eos % (Auto) 0.3 L 0.1 L (0.7-5.8) Baso % (Auto) 0.2 0.2 (0.1-1.2) % Neut # (Auto) 8.80 H 12.91 H (1.56-6.13) K/mm3 Lymph # (Auto) 1.68 2.92 (1.18-3.74) K/mm3 [place] # (Auto) 0.99 H 1.59 H (0.24-0.36) K/mm3 Eos # (Auto) 0.04 0.01 L (0.04-0.36) K/mm3 Baso # (Auto) 0.02 0.04 (0.01-0.08) K/mm3 Manual Slide Review Abnormal smear Abnormal smear Blood Type O POSITIVE Gel Antibody Screen Negative Med Orders - Current: Current Medications Acetaminophen (Tylenol) 650 mg PO Q4H PRN PRN Reason: mild pain or fever Docusate Sodium (Colace) 100 mg PO BID PRN PRN Reason: Constipation Emollient Ointment (Lansinoh Hpa) 0 gm TOP ASDIRECTED PRN PRN Reason: Sore Nipples Ibuprofen (Motrin) 600 mg PO Q4H PRN PRN Reason: Mild pain or fever Last Admin: 10/02/18 01:10 Dose: 600 mg Simethicone (Simethicone) 80 mg PO Q4H PRN PRN Reason: Gas Witch Crissy (Tucks) 1 pad TOP ASDIRECTED PRN PRN Reason: Hemorrhoid pain Discontinued Medications Ampicillin Sodium (Ampicillin) Confirm Administered Dose 2 gm IV .STK-MED ONE Stop: 10/01/18 12:14 Last Admin: 10/01/18 14:17 Dose: Not Given Ampicillin Sodium 2 gm/ Sodium (Chloride) 100 mls @ 200 mls/hr IV ONETIME ONE Stop: 10/01/18 12:38 Last Admin: 10/01/18 12:18 Dose: 200 mls/hr Ampicillin Sodium 1 gm/ Sodium (Chloride) 100 mls @ 200 mls/hr IV Q4H [facility] Last Admin: 10/01/18 15:37 Dose: 200 mls/hr Lactated Ringer's (Ringers, Lactated) 1,000 mls @ 100 mls/hr IV ASDIRECTED NEISHA Last Admin: 10/01/18 12:18 Dose: 100 mls/hr Oxytocin/Lactated Ringer's (Pitocin In Lr 10 Units/1,000 Ml) 10 unit in 1,000 mls @ 500 mls/hr IV .CONTINUOUS NEISHA Last Admin: 10/01/18 17:30 Dose: 500 mls/hr Sodium Chloride (Normal Saline) Confirm Administered Dose 100 mls @ as directed .ROUTE .STK-MED ONE Stop: 10/01/18 12:15 Last Admin: 10/01/18 14:17 Dose: Not Given Lidocaine HCl (Xylocaine 1%) Confirm Administered Dose 50 ml .ROUTE .STK-MED ONE Stop: 10/01/18 14:37 Last Admin: 10/01/18 18:05 Dose: Not Given Misoprostol (Cytotec) Confirm Administered Dose 400 mcg .ROUTE .STK-MED ONE Stop: 10/01/18 17:43 Last Admin: 10/01/18 18:03 Dose: 400 mcg Misoprostol (Cytotec) 400 mcg PO ONETIME ONE Stop: 10/01/18 18:31 Last Admin: 10/01/18 19:14 Dose: Not Given Nalbuphine HCl (Nubain) 10 mg IVPUSH Q2H PRN PRN Reason: pain Sodium Chloride (Saline Flush) 10 ml FLUSH ASDIRECTED PRN PRN Reason: Keep Vein Open
[2018-10-02 19:29] VITALS: BP 102/64
== END 2018-10-02 18:30 | disposition home or self-care (01) | DRG 560 ==
LOC: JD.OBCHECK 11:43 → JD.OB 11:46 → JD.OBCHECK 12:10 → JD.OB 12:10 → OBSVTOIN 12:10 → JD.OB 17:30
PROVIDERS: ADMIT Obstetrics & Gynecology; ATTEND Obstetrics & Gynecology
PROC: 10E0XZZ Delivery of Products of Conception, External Approach (ICD-10-PCS; principal; 2018-10-01)
DX: O99.824 Streptococcus B carrier state complicating childbirth (principal); O43.123 Velamentous insertion of umbilical cord, third trimester; Z3A.39 39 weeks gestation of pregnancy; Z37.0 Single live birth
CPT/HCPCS: 36415; 59025; 59409; 85025; 86850; 86900; 86901; A9270-GY; J0290; J2590; J7030; J7120

== ENCOUNTER 2022-06-22 16:37 | Inpatient (IN) | payer BC ==
[2022-06-22] MEDS ORDERED: Sodium Chloride 0.9% 10 ML Syringe FLUSH PRN (17:11)
[2022-06-22] MEDS ORDERED: Misoprostol 200 MCG Tab PO PRN (17:11)
[2022-06-22] MEDS ORDERED: Methylergonovine 0.2 MG/1 ML Amp IM PRN (17:11)
[2022-06-22] MEDS ORDERED: Nalbuphine HCl 10 MG/ 1ML Amp IVPUSH PRN (17:11)
[2022-06-22] MEDS ORDERED: Lactated Ringers 1,000 ML IV SCH (17:15)
[2022-06-22] MEDS ORDERED: Lidocaine 1% 50 ML MDV INJECT ONE (17:28)
[2022-06-22] MEDS ORDERED: Ampicillin 2 GM in Sodium Chloride 0.9% 100 ML IV ONE (17:28)
[2022-06-22] MEDS ORDERED: Ibuprofen 600 MG Tab PO PRN (20:14)
[2022-06-22] MEDS ORDERED: Magnesium Hydroxide 400 MG/5 ML Susp 30 ML Cup PO PRN (20:14)
[2022-06-22] MEDS ORDERED: Witch Hazel Medicated Pads 40/Jar TOP PRN (20:14)
[2022-06-22] MEDS ORDERED: Benzocaine/Menthol 20%-0.5% Spray 78 GM Cannister TOP PRN (20:14)
[2022-06-22] MEDS ORDERED: Acetaminophen 325 MG Tab PO PRN (20:14)
[2022-06-22] MEDS ORDERED: Hydrocortisone Acetate 25 MG Supp RECTAL PRN (20:14)
[2022-06-22] MEDS ORDERED: Docusate Sodium 100 MG Cap PO PRN (20:14)
[2022-06-22] MEDS ORDERED: Sodium Chloride 0.9% 10 ML Syringe FLUSH SCH (21:00)
[2022-06-22] MEDS ORDERED: Ampicillin 1 GM in Sodium Chloride 0.9% 100 ML IV SCH (21:30)
[2022-06-23] MEDS ORDERED: Ferrous Sulfate 324 MG Tab.EC PO SCH (07:00)
[2022-06-23] MEDS ORDERED: Prenatal Multivitamin with Calcium/Folic Acid/Iron Tab PO SCH (09:00)
[2022-06-24 12:04] VITALS: BP 105/69; PULSE 92
== END 2022-06-24 11:45 | disposition home or self-care (01) | DRG 560 ==
LOC: JD.OB 16:37 → OBSVTOIN 19:29 → JD.OB 19:29
PROVIDERS: ADMIT Obstetrics & Gynecology; ATTEND Obstetrics & Gynecology
PROC: 10E0XZZ Delivery of Products of Conception, External Approach (ICD-10-PCS; principal; 2022-06-22)
PROC: 0HQ9XZZ Repair Perineum Skin, External Approach (ICD-10-PCS; 2022-06-22)
DX: O99.824 Streptococcus B carrier state complicating childbirth (principal); Z3A.38 38 weeks gestation of pregnancy; Z37.0 Single live birth; O70.0 First degree perineal laceration during delivery; O99.02 Anemia complicating childbirth; D64.9 Anemia, unspecified
CPT/HCPCS: 36415; 59025; 59409; 85025; 86850; 86900; 86901; J0290; J2210; J7120